=== PATIENT | male | born 1975 | race Caucasian/White ===

== ENCOUNTER 2021-09-13 09:00 | Emergency (ER) | payer OTHER ==
--- NOTE | 2021-09-13 09:31 | EDM.PDOC ---
ED HPI GENERAL MEDICAL PROBLEM - General Chief Complaint: General Stated Complaint: RIB INJURY Time Seen by Provider: 09/13/21 09:15 Source of Information: Reports: Patient History Limitations: Reports: No Limitations - History of Present Illness INITIAL COMMENTS - FREE TEXT/NARRATIVE: Patient presents with worsening pain in ribs and scapula since an injury 3 days ago. 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 It hurt some that night but not too bad; it has steadily worsened each day since. Denies dyspnea but it does hurt to take deep breaths. The worst pain is in the left scapula area. 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 He says his BP has been around 155/107 recently. Bilateral Chest Pain Score (Numeric/FACES): 8 - Related Data Allergies Allergy/AdvReac Type Severity Reaction Status Date / Time tramadol [From Ultram] Allergy Seizure Verified 09/13/21 09:25 Home Meds: Home Meds Citalopram [Citalopram HBr] 20 mg PO DAILY 09/13/21 [History] amLODIPine [Norvasc] 5 mg PO DAILY 09/13/21 [History] atenoloL [Atenolol] 50 mg PO DAILY 09/13/21 [History] lisinopriL [Lisinopril] 10 mg PO DAILY 09/13/21 [History] ED ROS GENERAL - Review of Systems Review Of Systems: See Below Constitutional: Denies: Fever, Chills, Malaise, Weakness HEENT: Reports: No Symptoms Respiratory: Denies: Shortness of Breath Cardiovascular: Denies: Lightheadedness, Syncope GI/Abdominal: Denies: Abdominal Pain, Vomiting : Denies: Hematuria Musculoskeletal: Denies: Neck Pain, Shoulder Pain, Arm Pain Skin: Reports: No Symptoms Neurological: Denies: Confusion, Dizziness, Headache, Seizure, Syncope, Trouble Speaking, Difficulty Walking Psychiatric: Denies: Agitation, Anxiety, Confusion ED EXAM, GENERAL - Physical Exam Exam: See Below Exam Limited By: No Limitations General Appearance: Alert, WD/WN, No Apparent Distress Eye Exam: Bilateral Eye: EOMI, Normal Inspection, PERRL Ears: Normal External Exam, Hearing Grossly Normal Nose: Normal Inspection, No Blood Throat/Mouth: Normal Inspection, Normal Voice, No Airway Compromise Head: Atraumatic, Normocephalic Neck: Normal Inspection, Non-Tender, Full Range of Motion. No: Tender Lateral, Tender Midline Respiratory/Chest: No Respiratory Distress, Lungs Clear, Normal Breath Sounds (some initial atelectasis and pain with deep breaths but then improved), Other (mild tender to palpation of left low ribs ant/post; most tender over the lower left scapula) Cardiovascular: Regular Rate, Rhythm, No Murmur GI/Abdominal: Normal Bowel Sounds, Soft, Non-Tender, No Organomegaly, No Distention Back Exam: Normal Inspection, Full Range of Motion. No: CVA Tenderness (L), CVA Tenderness (R) Extremities: Normal Inspection, Normal Range of Motion Neurological: Alert, Oriented, Normal Cognition, No Motor/Sensory Deficits Psychiatric: Normal Affect, Normal Mood Skin Exam: Warm, Dry, Intact, Normal Color, No Rash Course - Vital Signs Last Recorded V/S: Last Vital Signs Temp 97.7 F 09/13/21 09:16 Pulse 74 09/13/21 10:08 Resp 18 09/13/21 09:16 BP 161/107 H 09/13/21 10:08 Pulse Ox 97 09/13/21 09:16 - Orders/Labs/Meds Meds: Medications Discontinued Medications Generic Name Dose Route Start Last Admin Trade Name Freq PRN Reason Stop Dose Admin Hydrocodone Bitart/Acetaminophen 1 tab 09/13/21 09:39 09/13/21 10:06 Acetaminophen/Hydrocodone 325-10 Mg Tab PO 09/13/21 09:40 1 tab ONETIME ONE Administration Amlodipine Besylate 5 mg 09/13/21 09:37 09/13/21 10:07 Amlodipine 5 Mg Tab PO 09/13/21 09:38 5 mg ONETIME ONE Administration Atenolol 50 mg 09/13/21 09:37 09/13/21 10:07 Atenolol 25 Mg Tab PO 09/13/21 09:38 50 mg ONETIME ONE Administration Lisinopril 20 mg 09/13/21 09:37 09/13/21 10:07 Lisinopril 10 Mg Tab PO 09/13/21 09:38 20 mg ONETIME ONE Administration - Re-Assessments/Exams Free Text/Narrative Re-Assessment/Exam: 09/13/21 11:18 CXR shows no pneumothorax, infiltrate, effusion, edema or rib fractures. We gave doses of his BP meds in ER and pressure has dropped some, then up while I as talking to him again. 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 His pain is better with the hydrocodone we gave him but he is sleepy now. Someone will drive him home. I discussed findings and plan with him. He will use his Aleve twice daily but hydrocodone after work and before bed. BP still elevated but patient stable at discharge. Last 160/103. Rx for hydrocodone/apap 5/325 #20, 1 po q4- 6h prn, 0 ref. Departure - Departure Time of Disposition: 11:10 Disposition: Home, Self-Care 01 Condition: Good Clinical Impression: Traumatic injury of rib Hypertension Qualifiers: Hypertension type: unspecified Qualified Code(s): I10 - Essential (primary) hypertension - Discharge Information Referrals: Sarah Mac MD [Primary Care Provider] - Forms: ED Department Discharge Additional Instructions: Drink 8 cups of water daily. Make sure to take some deep breaths several times throughout the day to avoid risk of pneumonia. Continue your Aleve 2 tablets twice daily. You can use Hydrocodone as directed but not with driving or operating machinery. Taking at home when off work and at bedtime should work well. Make sure to get back on your blood pressure medications right away. Follow up with clinic provider if not improving in a week for recheck and to extend work restrictions if needed. If worsening or short of breath, recheck in clinic or ER as needed. Sepsis Event Note (ED) - Evaluation Sepsis Screening Result: No Definite Risk - Focused Exam Vital Signs: Vital Signs Temp Pulse Pulse Resp BP BP Pulse Ox 09/13/21 10:08 74 161/107 H 09/13/21 10:07 74 161/107 H 09/13/21 10:00 82 186/123 H 09/13/21 09:25 75 204/125 H 09/13/21 09:16 97.7 F 79 18 190/121 H 97
[2021-09-13] MEDS ORDERED: amLODIPine 5 MG Tab PO ONE (09:37)
[2021-09-13] MEDS ORDERED: Lisinopril 10 MG Tab PO ONE (09:37)
[2021-09-13] MEDS ORDERED: Atenolol 25 MG Tab PO ONE (09:37)
[2021-09-13] MEDS ORDERED: Acetaminophen/HYDROcodone 325-10 MG Tab PO ONE (09:39)
--- NOTE | 2021-09-13 10:20 | CR ---
[id number] RAD/RAD Ribs Left W PA Chest EXAM: RAD Ribs Left W PA Chest INDICATION: PAIN IN LEFT RIBS ANTERIOR/POSTERIOR AND LEFT SCAPULA. COMPARISON: None. DISCUSSION: Cardiomediastinal silhouette is normal in size and contour. No infiltrate, effusion, pneumothorax, or edema. No radiographic evidence of acute rib fracture. IMPRESSION: No acute cardiopulmonary abnormality. Shantanu Davenport DO 09/13/21 1019 Thank you for allowing us to participate in the care of your patient.
== END 2021-09-13 11:35 | disposition home or self-care (01) ==
LOC: KA.ED 09:00
DX: S29.9XXA Unspecified injury of thorax, initial encounter (principal); I10 Essential (primary) hypertension; Z88.5 Allergy status to narcotic agent; Z79.899 Other long term (current) drug therapy; W22.09XA Striking against other stationary object, initial encounter
CPT/HCPCS: 71101; 99283; A9270